=== PATIENT | male | born 1935 | race African-American/Black ===

== ENCOUNTER 2025-05-07 22:21 | Emergency (ER) | payer BC, OTHER ==
[~2025-05-07] VITALS: Ht 177.8 cm; Wt 60.0 kg
[2025-05-07] MEDS ORDERED: SODIUM BICARB 8.4% 50Meq/50ml SYR INJ IV ONE (22:22)
[2025-05-07] MEDS ORDERED: CALCIUM CHLOR(10%) 100MG/ML 10ML SYRINGE IV ONE (22:22)
[2025-05-07] MEDS ORDERED: EPINEPHrine HCL 1 MG/10 ML SYRG IV ONE (22:22)
[2025-05-07] MEDS ORDERED: AMIODARONE HCL (50 MG/ ML) 3 ML VIAL IV ONE (22:22)
[2025-05-07] MEDS ORDERED: MAGNESIUM SULF 50% 40 MEQ/10 ML VL IV ONE (22:22)
[2025-05-07 22:30] VITALS: BP 0/0; PULSE 0; RESP 0; O2SAT 0
--- NOTE | 2025-05-07 22:30 | ED.PDOC ---
CPR-HPI HPI Comments HPI 89 year old male SABA presents to the ED with cardiac arrest onset today. Per EMS, Pt was found unresponsive at 21:50 by family cpr began immediately, Last seen well at 17:00 patient had no complaints at that time, per family, unknown down time. Upon EMS arrival, compressions continued en route to ED pt was in V- fib with no pulse, was give 4 rounds of epi, 90 mg lidocaine, last epi was given upon ED arrival 22:20, IO to LT tib fib. Upon ED arrival, cpr continued, Pt was intubated with 7.5 ett tube in the ED, BG was 87, temperature was 94.5 F rectal. Time of was called at 22:34. ROS: Unable to Obtain EXAM: General: Patient is unresponsive. HEENT: Pupils fixed, dilated, nonreactive. There is no corneal reflex. Cardiac: No heart sounds auscultated, no pulses palpated Abdomen: Soft, nondistended Respiratory: No spontaneous respirations, no breath sounds auscultated Neuro: GCS 3, patient is unresponsive to painful stimulus. Skin: Extremities cool Time Seen by MD: 22:20 Reviewed Notes: Medications, Allergies Allergies: Coded Allergies: NO KNOWN ALLERGIES (Verified , 01/01/10) Information Source: Emergency Med Personnel Mode of Arrival: EMS Timing: Hours Duration: Down time prior EMS: (unknown) Onset: At rest Inital rhythm: V-fib Treatment: CPR, Epinephrine, None (Lidocaine, IO) Associated signs and symptoms: None Past Medical History PAST MEDICAL HISTORY: High Lipids, HTN Surgical History: Unknown Family History Family History: Unknown Social History Smoker: Unknown Alcohol: Unknown Drugs: Unknown Lives In: Home Was a procedure done? Was a procedure done?: Yes Sedation Sedation?: No Intubation Indication: Respiratory Insufficiency Prep: Preoxygenation Pretreated with: Nothing Medicated with: Nothing Intubation Approach: Orotracheal (7.5) Informed consent obtained: No Risks/benefits/alt described: No Notes Patient intubated by resident Dr. Baldwin Differential Dx CPR Differential Diagnosis: Cardiopulmonary arrest, Cardiac Tamponade, Cardiogenic shock, Dysrhythmia, Electrolyte disorder, Heart Block, Myocardial Infarction, Pneumothorax, Pulmonary Embolus, Respiratory Failure, Ruptured Aortic Aneurysm, Other X-Ray, Labs, Meds, VS Vital Signs Date Time Temp Pulse Resp B/P (MAP) Pulse Ox O2 Delivery O2 Flow Rate FiO2 12/24/25 04:27 202.1 0 0 0 Ambu-Bag 0 0 05/07/25 22:36 94.5 94.5 05/07/25 22:30 0 0 0 Room Air* 0 21 05/07/25 22:30 0 0 0/0 (0) 0 Time of 1ST Reevaluation: 04:25 Reevaluation 1ST: Improved Patient Education/Counseling: Pt Unresponsive Family Education/Counseling: Other SEPSIS Sepsis Screen Vital Signs Date Time Temp Pulse Resp B/P (MAP) Pulse Ox O2 Delivery O2 Flow Rate FiO2 05/08/25 04:27 202.1 0 0 0 Ambu-Bag 0 0 05/07/25 22:36 94.5 94.5 05/07/25 22:30 0 0 0 Room Air* 0 21 05/07/25 22:30 0 0 0/0 (0) 0 Departure 1 Departure Time of Disposition: 22:34 Impression: Primary Impression: Cardiac arrest Disposition: 20 Condition: Other () Comments 89-year-old male presented to the emergency department via EMS with cardiac arrest. ACLS protocols were in progress by EMS personnel. On arrival to the emergency department cardiac compressions were continued by staff in order to sustain blood flow. The patient was intubated, ventilated and oxygenated. The patient received appropriate ACLS measures and these were repeated as necessary throughout the resuscitation. CPR was performed under my direct supervision and guidance. See patient resuscitation status note for medications and times given. After discontinuation of resuscitation, I did not observe spontaneous breathing or appreciate heart sounds on auscultation. There was no palpable radial pulse. The patient did not respond to nail bed stimuli. I examined the patient and there was no pupillary response to light. Patient was pronounced . TOD: [id number] Family members were notified that the patient had . Critical Care Note Critical Care Time?: No Heart Score Heart Score: Heart Score Response (Comments) Value History N/A 0 EKG N/A 0 Age N/A 0 Risk Factors N/A 0 Troponin N/A 0 Total 0 Stability Stability form required: No I personally scribed for AMARI SOMMER MD ([email or web address]) on 05/07/25 at 22:30. Electronically submitted by Kelli Chavez ([employer]). I personally scribed for AMARI SOMMER MD ([email or web address]) on 05/07/25 at 22:44. El ectronically submitted by Maria Teresa Gibson ([email or web address]). I personally scribed for AMARI SOMMER MD ([email or web address]) on 05/07/25 at 22:47. El ectronically submitted by Kelli Chavez ([email or web address]). AMARI SOMMER MD May 07, 2025 22:30
[2025-05-07 22:36] VITALS: TEMP 94.5
--- NOTE | 2025-05-08 04:27 | RESUS ---
CODE BLUE ASSESSSMENT History of Events History of Events: 89 year old male SABA presents to the ED with cardiac arrest onset today. Per EMS, Pt was found unresponsive at 21:50 by family cpr began immediately, Last seen well at 17:00 patient had no complaints at that time, per family, unknown down time. Upon EMS arrival, compressions continued en route to ED pt was in v-fib with no pulse, was give 4 rounds of epi, 90 mg lidocaine Initial Information Date: May 07, 2025 Time: 21:50 Location of Arrest: In Field Arrest Witnessed: No CPR started initial time: 21:50 CPR started by whom: FAMILY Last seen well: 1700 Pre-Hospital Care: ACLS Type of arrest: Cardiac, Respiratory, Adult, Unwitnessed Spontaneous Respirations: No Pulse Present: No Monitoring: ECG, Pulse Oximetry, Apnea, Telemetry Crash Cart Opened and Supplies: Yes Airway Ventilation Breathing at Onset: Apneic O2 Sat by Pulse Oximetry: 0 Oxygen Delivery Method: Ambu-Bag Oxygen 100% Time of first Assisted Ventila: 22:23 Artificial Ventilation: Bag/Endo tube Intubation Size: 7.5 cuffed Intubation Attempts: 1 Intubated orally: Yes Intubated Nasaly: No Tube secured at: 24 Cricoid pressure done: No CO2 indicator used: Yes Confirmation: Auscultation, Exhaled CO2 Suctioning (Oral/Tracheal): No Circulation Circulation : Time: 22:20 Pulse Rate (adult): 0 Blood Pressure Systolic: 0 Blood Pressure Diastolic: 0 Temperature (Fahrenheit): 94.5 Defibrillation Defbrillation : Time Defibrillator Applied: 22:28 EKG Rhythm: V-Fibrillation Compressions: Device Compressions Hold/Resume: 8 Time Defibrillator Shocked Pt.: 22:28 Defib. Joules: 120 EKG Rhythm: Asystole Procedure - IV Procedure - IV #1: IV start time: 22:25 IV Side: Left IV Catheter Type: Saline Lock IV Placed: In Hospital IV Gauge: 18 IV Line Care: Saline Flush Procedure - IV #2: IV start time: 22:25 IV Side: Right IV Location: Antecubital IV Catheter Type: Saline Lock IV Placed: In Hospital IV Gauge: 20 IV Line Care: Saline Flush Procedure - Intraosseous Site of Intraosseous: Tibia larry-medial Comment: PLACED BY EMS Medications & Response Medications and Responses #1: Medication Time: 22:22 ADULT Medications Given ADULT: Epinephrine 1 mg Route of Administration: IV Heart Rate: 0 EKG Rhythm: Asystole Blood Pressure Systolic: 0 Blood Pressure Diastolic: 0 Respiratory Rate: 0 O2 Sat by Pulse Oximetry: 0 EKG Rhythm: Asystole Comment PULSE CHECK 2225 Medications and Responses #2: Medication Time: 22:25 ADULT Medications Given ADULT: Epinephrine 1 mg, Sodium Bacarbinate 50 meq, Magnesium Sulfate 2 gm, Calcium Chloride 10 mL Route of Administration: IV Heart Rate: 0 EKG Rhythm: Asystole Blood Pressure Systolic: 0 Blood Pressure Diastolic: 0 Respiratory Rate: 0 O2 Sat by Pulse Oximetry: 0 EKG Rhythm: PEA Comment NO PULSE 2228 Medications and Responses #3: Medication Time: 22:28 ADULT Medications Given ADULT: Epinephrine 1 mg, Amiodarone 150 mg Route of Administration: IV Heart Rate: 0 EKG Rhythm: Asystole Blood Pressure Systolic: 0 Blood Pressure Diastolic: 0 Respiratory Rate: 0 O2 Sat by Pulse Oximetry: 0 EKG Rhythm: Asystole Comment 2231 NO PULSE Medications and Responses #4: Medication Time: 22:31 ADULT Medications Given ADULT: Epinephrine 1 mg Route of Administration: IV Heart Rate: 0 EKG Rhythm: Asystole Blood Pressure Systolic: 0 Blood Pressure Diastolic: 0 Respiratory Rate: 0 O2 Sat by Pulse Oximetry: 0 EKG Rhythm: Asystole Comment NO PULSE 2234 PT PRONOUNCED Pacing Pacer Pads Applied and Pacing: Yes Nurses Notes Diana Coma Scale Eye Opening: None (1) Morgan Coma Scale Verbal: None (1) Morgan Coma Scale Motor: None (1) Glascow Total: 3 Pupil Reaction: Non Reactive Bedside Blood Glucose: 87 Time Code Ended Time Code Ended: 22:34 Post Arrest Status: Outcome of code: Unsuccessful Patient pronounced by: DR SOMMER Time patient pronounced: 22:34 Family notified: Yes Attending called: Yes Code Team Present: JONATHAN ABRAHAM RN HS, MARSHALL REINFORCING BAR SETTER, CORY RN, TRAN RN, SABINA RN, RUBEN ERT, JERRELL ERT, ALEM RT, GEORGE RT Post Resuscitation Neurologica Pupil Size: 4 Comment: JONATHAN MCCLELLAND May 08, 2025 04:27
== END 2025-05-07 22:34 ==
LOC: EDBD 22:21 → ER 22:21
DX: I46.9 Cardiac arrest, cause unspecified (principal); I10 Essential (primary) hypertension; E78.5 Hyperlipidemia, unspecified
CPT/HCPCS: 31500; 92950; 99285; J0169; J0282; J3475